=== PATIENT | female | born 1960 | race Asian ===

== ENCOUNTER 2020-10-30 16:02 | Emergency (ER) | payer MEDICARE, OTHER ==
[~2020-10-30] VITALS: Ht 157.5 cm; Wt 77.3 kg
[2020-10-30] MEDS ORDERED: LORazepam 2 MG TABLET PO ONE (17:45)
[2020-10-30] MEDS ORDERED: HALOPERIDOL 5 MG TABLET PO ONE (17:45)
[2020-10-30 19:20] VITALS: BP 141/85
== END 2020-10-30 20:00 ==
LOC: EMS 16:02
DX: F20.9 Schizophrenia, unspecified (principal)
CPT/HCPCS: 99284